=== PATIENT | male | born 1995 | race African-American/Black ===

== ENCOUNTER 2021-02-10 13:51 | Emergency (ER) | payer OTHER ==
[~2021-02-10] VITALS: Ht 167.6 cm; Wt 66.2 kg
[2021-02-10 19:30] VITALS: BP 113/77; TEMP 99.1
== END 2021-02-10 19:36 | disposition home or self-care (01) ==
LOC: ED 13:51
DX: H60.8X1 Other otitis externa, right ear (principal)
CPT/HCPCS: 99282